=== PATIENT | male | born 1975 | race Caucasian/White ===

== ENCOUNTER 2022-08-03 12:53 | Outpatient (CLI) | payer MEDICAID, SELFPAY ==
--- NOTE | 2022-08-03 13:05 | XR_ITS ---
WS: [id number] Lumbar spine, 3 views, 08/03/2022 Clinical Data: M54.50 - Low back pain, unspecified Comparison: None. Findings: No compression fractures or subluxation is seen. No disc space narrowing is seen. The transverse proc esses and SI joints are normal. There is minimal anterior spurring at L1-L3. XR/XR lumbar spine 2-3V* [id number] Impression: Osteoarthritis at L1-L3.
--- NOTE | 2022-08-03 13:05 | XR_ITS ---
WS: [id number] Cervical spine, 3 views, 08/03/2022 Clinical Data: M50.30 - Other cervical disc degeneration, unspecified ce... Comparison: None. Findings: No compression fractures are seen. The disc heights are normal. There is no prevertebral so ft tissue swelling. The odontoid is unremarkable. The soft tissues of the neck and the lung apices ar e normal. XR/XR cervical spine 3V* [id number] Impression: Negative cervical spine.
== END 2022-08-03 12:54 | disposition home or self-care (01) ==
LOC: RAD 12:56
PROVIDERS: PCP Registered Nurse; Visit Provider Registered Nurse
DX: M54.50 Low back pain, unspecified (principal); M50.30 Other cervical disc degeneration, unspecified cervical region; M47.816 Spondylosis without myelopathy or radiculopathy, lumbar region
CPT/HCPCS: 72040; 72100

== ENCOUNTER → 2022-10-19 08:41 | Outpatient (BNVA) | payer MEDICAID, SELFPAY | PROVIDERS: PCP Registered Nurse; Visit Provider Registered Nurse | DX: G47.00 Insomnia, unspecified (principal) | CPT/HCPCS: 80053; 80061; 85025 ==

== ENCOUNTER 2022-12-05 10:30 | Outpatient (CLI) | payer MEDICAID, SELFPAY | END 2022-12-05 10:31 | disposition home or self-care (01) | LOC: SLEEP 12-06 09:57 | PROVIDERS: PCP Registered Nurse; Visit Provider Registered Nurse | DX: G47.33 Obstructive sleep apnea (adult) (pediatric) (principal); G47.00 Insomnia, unspecified | CPT/HCPCS: G0399 ==

== ENCOUNTER → 2023-11-20 08:56 | Outpatient (BNVA) | payer MEDICAID, SELFPAY | PROVIDERS: PCP Registered Nurse; Visit Provider Registered Nurse | DX: Z79.899 Other long term (current) drug therapy (principal) | CPT/HCPCS: 80053 ==

== ENCOUNTER → 2023-11-29 09:12 | Outpatient (BNVA) | payer MEDICAID, SELFPAY | PROVIDERS: PCP Registered Nurse; Visit Provider Registered Nurse | DX: R33.9 Retention of urine, unspecified (principal) | CPT/HCPCS: 81000; G0103 ==

== ENCOUNTER → 2025-01-08 09:27 | Outpatient (BNVA) | payer MEDICAID, SELFPAY | PROVIDERS: PCP Registered Nurse; Visit Provider Registered Nurse | DX: I10 Essential (primary) hypertension (principal) | CPT/HCPCS: 80061; 85025 ==